=== PATIENT | female | born 1955 | race Two or more races ===

== ENCOUNTER → 2022-08-15 | Emergency (ER) | payer OTHER ==
[~2022-08-15] VITALS: Ht 157.5 cm; Wt 49.0 kg
[~2022-08-15] MED LIST: PREDNISOLONE ACE5 M1; PROVENTIL2.5 MG/3 M; SYNTHROID50 MCG; VASOTEC10 MG
== END | disposition left against medical advice (07) ==
LOC: ER 01:43
DX: Z53.21 Procedure and treatment not carried out due to patient leaving prior to being seen by health care provider (principal)